=== PATIENT | male | born 1990 | race Caucasian/White ===

== ENCOUNTER 2018-03-04 12:35 | Emergency (ER) | payer SELFPAY | END 2018-03-04 13:30 | disposition home or self-care (01) | LOC: NAV ERS 12:35 | DX: J02.9 Acute pharyngitis, unspecified (principal); F17.210 Nicotine dependence, cigarettes, uncomplicated | CPT/HCPCS: 99283 ==

== ENCOUNTER 2018-06-08 09:02 | Emergency (ER) | payer SELFPAY ==
[2018-06-08] MEDS ORDERED: Ketorolac Tromethamine 60 MG/2 ML VIAL ONE (09:34)
[2018-06-08] MEDS ORDERED: Acetaminophen 500 MG TAB ONE (09:34)
--- NOTE | 2018-06-08 10:25 | RAD ---
CHEST TWO VIEWS: History: Chest pain. Comparison: 2012 FINDINGS: Lungs are clear of airspace consolidation, pneumothorax, or effusion. 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 No acute osseous abnormality. Cardiac silhouette and mediastinal contours are within normal limits. IMPRESSION: No acute intrathoracic abnormality. POS: [facility]
== END 2018-06-08 10:03 | disposition home or self-care (01) ==
LOC: NAV ERS 09:02
DX: S29.011A Strain of muscle and tendon of front wall of thorax, initial encounter (principal); F17.210 Nicotine dependence, cigarettes, uncomplicated; F17.220 Nicotine dependence, chewing tobacco, uncomplicated; X50.0XXA Overexertion from strenuous movement or load, initial encounter
CPT/HCPCS: 71046; 96372; J1885

== ENCOUNTER 2023-06-24 08:59 | Emergency (ER) | payer SELFPAY ==
[2023-06-24] MEDS ORDERED: Doxycycline 100 MG CAP ONE (09:20)
[2023-06-24] MEDS ORDERED: Sulfameth/Trimethoprim DS 800-160mg TAB ONE (09:20)
== END 2023-06-24 09:26 | disposition home or self-care (01) ==
LOC: NAV ERS 08:59
DX: L03.116 Cellulitis of left lower limb (principal); F17.210 Nicotine dependence, cigarettes, uncomplicated; F17.220 Nicotine dependence, chewing tobacco, uncomplicated
CPT/HCPCS: 99283

== ENCOUNTER 2023-09-03 15:38 | Emergency (ER) | payer OTHER, SELFPAY ==
[2023-09-03] MEDS ORDERED: Ketorolac Tromethamine 30 MG (1 mL) VIAL ONE (16:08)
== END 2023-09-03 17:19 | disposition home or self-care (01) ==
LOC: NAV ERS 15:38
DX: S16.1XXA Strain of muscle, fascia and tendon at neck level, initial encounter (principal); S93.401A Sprain of unspecified ligament of right ankle, initial encounter; S00.81XA Abrasion of other part of head, initial encounter; V89.2XXA Person injured in unspecified motor-vehicle accident, traffic, initial encounter; F17.210 Nicotine dependence, cigarettes, uncomplicated; F17.220 Nicotine dependence, chewing tobacco, uncomplicated
CPT/HCPCS: 72125; 96374; J1885